=== PATIENT | female | born 1960 | race Caucasian/White ===

== ENCOUNTER 2023-12-16 17:49 | Emergency (ER) | payer MEDICAID ==
[~2023-12-16] VITALS: Ht 154.9 cm; Wt 68.0 kg
[2023-12-16 17:53] VITALS: BP_SYST 134; PULSE 85; RESP 16; TEMP 98.2; O2SAT 100
[2023-12-16] MEDS: KETOROLAC TROMETHAMINE 30 MG VIAL IM ONE (18:22)
[2023-12-16] MEDS: ceFAZolin SODIUM 1 GM VIAL IM ONE (20:33)
[2023-12-16] MEDS ORDERED: CLIN-142 PO (20:40)
[2023-12-16] MEDS ORDERED: DICL20GE TP (20:40)
[2023-12-16 20:53] VITALS: BP_SYST 136; PULSE 72; RESP 16; TEMP 97.8; O2SAT 98
== END 2023-12-16 20:53 | disposition home or self-care (01) ==
LOC: SED 17:49
DX: S90.562A Insect bite (nonvenomous), left ankle, initial encounter (principal); L03.116 Cellulitis of left lower limb; Z79.899 Other long term (current) drug therapy; W57.XXXA Bitten or stung by nonvenomous insect and other nonvenomous arthropods, initial encounter; Y93.89 Activity, other specified; Y92.89 Other specified places as the place of occurrence of the external cause; Y99.8 Other external cause status
CPT/HCPCS: 99284; 84550; 36415; 73610; 96372; J0690; J1885